=== PATIENT | male | born 1940 | race Caucasian/White ===

== ENCOUNTER 2016-05-01 11:22 | Inpatient (IN) | payer MEDICARE, OTHER ==
[~2016-05-01] VITALS: Ht 165.1 cm; Wt 61.3 kg
--- NOTE | ~2016-05-01 | CON ---
[place], [place] REPORT OF [facility]ATION [id number] UNIT #: [id number] ROOM: 502 DOCTOR: LEE ROGERSKIKE BIRTHDATE: [birth year] DOS: 05/02/2016 GASTROENDOSCOPIC REPORT HISTORY OF PRESENT ILLNESS: A 75-year-old patient who has presented with chief complaint of not feeling well, abdominal pain, undergoing investigation. The patient is known with prostate CA with bone metastasis. He also was found to have elevated amylase and lipase with 246 and 3818. CBC: White blood cell was 8, H and H of 11 and 34, differential within normal limit. Comprehensive metabolic panel, bilirubin was 0.6. ALT and AST normal, alkaline phosphatase 246. Lipase normalized to 577. CT scan of the abdomen and pelvis was done. Findings consistent with significant improvement in pancreatitis history when compared to prior exams, biliary stent with dilation of extrahepatic duct and , metastatic bone disease, fatty liver, cortical thickening of the kidney, left common iliac artery aneurysm all has been recognized. His amylase and lipase improved, lipase 400. PAST MEDICAL HISTORY: Abnormal LFTs, pancreatitis, pseudocyst, STEMI, prostate CA metastasis. PAST SURGICAL HISTORY: Right hand fingers amputations, renal lithiasis, angioplasty prostate, and cardiac catheterization. SOCIAL HISTORY: Smoker, nonalcohol consumer. FAMILY HISTORY: Coronary artery disease and diabetes. ALLERGIES: To no known medication. REVIEW OF SYSTEMS: In general, HEENT: Denies double vision, blurred vision. RESPIRATORY: Denies acute shortness of breath. CARDIOVASCULAR: Denies acute chest pain. DIGESTIVE SYSTEM: Cross abdominal pain, history of pancreatitis and gradual resolution of pancreatitis. PHYSICAL EXAMINATION: Reveals, VITAL SIGNS: Stable. HEENT: Head normocephalic, nontraumatic. Mouth and buccal mucosa benign. NECK: Supple, no thyromegaly. CHEST: Symmetric anatomy, equal expansion. No wheeze, no rhonchi. HEART: Normal sinus rhythm, no gallop, no murmur. ABDOMEN: Soft. No hepato-organomegaly. Bowel sounds within normal limits. EXTREMITIES: No cyanosis, no pedal edema. NEUROLOGIC: Alert, oriented to time, place and person. IMPRESSION: Pancreatitis with multi findings on CT scan as identified in detail with gradual resolution of pancreatitis with presence of biliary stent, cysts in the kidneys, abdominal aortic aneurysm, heterogeneous mass in the head of the pancreas measuring 3 cm and 17 mm cyst anterolateral location of this as [place], [place] REPORT OF CONSULTATION NAME: BRAXTON CHEN UNIT #: [id number] ROOM: [facility] DOCTOR: LEE ROGERS,KIKE BIRTHDATE: [birth year] explained, details are in the CT scan. PLAN AND DISCUSSION: In the presence of diffuse bony metastasis, conservative management would be recommended. Should the patient continue having difficulty swallowing or eating, I am going to organize an EGD. KIKE HOWARD MD CM:CONSTR:REPORT OF CONSULTATION 1649 05/03/16 0330 interface
--- NOTE | ~2016-05-01 | PR ---
[place], [place] PROGRESS NOTE NAME: BRAXTON CHEN UNIT #: [id number] ROOM: 502 DOCTOR: KAYLEIGH BAINS MD BIRTHDATE: [birth year] DOS: 05/03/2016 SUBJECTIVE: The patient is doing fine without any new complaints. He did have a fever during the night. Narayanan cultures were ordered and its pending. He was placed on Rocephin. OBJECTIVE: VITAL SIGNS: Graphic trend shows a pressure of 146/60, pulse of 69, respirations 18, temperature 97.2. LUNGS: Diminished breath sounds. No wheezes, rales or rhonchi heard. HEART: Regular. ABDOMEN: Obese, soft. EXTREMITIES: Without any edema. LABORATORY DATA: Tumor markers, CA 19-9 is actually normal at 47. ASSESSMENT AND PLAN: 1. Acute pancreatitis. The patient is on n.p.o. status, awaiting endoscopy tomorrow. Dr. Quinonez has already been seen. 2. Mass pancreas. CA 19-9 surprisingly normal and his recent biopsy is negative, so we still not sure about what the origin of this mass, whether this is an underlying malignancy, it might not be a bad idea to do a magnetic resonance cholangiopancreatography on this patient. We will discuss with Dr. Quinonez. KAYLEIGH BAINS MD CM:PNTRANS [id number] KAYLEIGH BAINS MD 05/31/16 1333 GAGAN ROCHA.PP
--- NOTE | ~2016-05-01 | WRIGHTHP ---
[place], [place] PATIENT HISTORY AND PHYSICAL EXAM NAME: BRAXTON CHEN [facility] #: [id number] UNIT #: [id number] ROOM: 502 DOCTOR: KAYLEIGH BAINS MD BIRTHDATE: [birth year] DOS: 05/01/2016 HISTORY OF PRESENT ILLNESS: The patient is 75-year-old. He had come to the office last week with complaints of abdominal pain. Amylase and lipase was ordered, which were elevated, so was advised admission. He continues to have abdominal pain. Denies having any fever, any chills, any chest pains or palpitations. PAST MEDICAL HISTORY: Significant for; 1. Recent diagnosis of pancreatic mass, status post biopsy by Dr. Quinonez which was unremarkable. 2. CA prostate with bony mets. 3. Benign hypertension. 4. Cardiac catheterization with recent stent placement. 5. Coronary artery disease. 6. Type 2 diabetes mellitus, diet controlled. 7. Tobacco dependence. 8. Chronic obstructive pulmonary disease, panacinar emphysema. MEDICATIONS: Symbicort 80 two puffs daily, aspirin 81 daily, calcium 500 daily, Coreg 12.5 b.i.d., vitamin D 5000 units daily, Plavix 75 daily, Xtandi 160 daily, Lasix 20 Saturday and Fridays only, Glucotrol 5 mg daily, lisinopril 5 mg daily, Protonix 40 b.i.d., sertraline 50 daily, nitroglycerin 0.6 daily. SOCIAL HISTORY: Smoker of about 1 pack of cigarettes a day. Denies using any alcohol. PHYSICAL EXAMINATION: GENERAL: The patient is awake and alert and oriented. VITAL SIGNS: Blood pressure is 132/74, pulse of 78, respirations 18, temperature 98.8. LUNGS: Diminished breath sounds. No wheezes, rales or rhonchi heard this morning. HEART: Regular. ABDOMEN: Soft but distended. Some diffuse tenderness. EXTREMITIES: Without any edema. LABORATORY DATA: CT of the abdomen shows a biliary stent, mass at the head of pancreas about 3 cm and 4.9 cm, infrarenal abdominal aortic aneurysm, osteoblastic lesion. ASSESSMENT AND PLAN: 1. Acute pancreatitis. The patient to be kept n.p.o., IV fluids have been ordered. Pain management to be given with fentanyl and Dr. Quinonez has been consulted. Discussed with Dr. Quinonez as well as the patient, and his in detail. 2. Mass pancreas. This is most likely from underlying malignancy, CA 19-[address] Quinonez will make a decision as regards to whether he wants to do another ERCP. 3. Carcinoma prostate, on chemotherapy with bony mets. Overall, prognosis [place], [place] PATIENT HISTORY AND PHYSICAL EXAM [facility]: [id number] UNIT #: [id number] ROOM: 502 DOCTOR: KAYLEIGH BAINS MD BIRTHDATE: [birth year] remains poor and guarded. If CA 19-9 comes back elevated, may need to consider hospice care for possibility of carcinoma pancreas. 4. Benign hypertension, controlled. 5. Type 2 diabetes mellitus, non-insulin dependent. Continue blood sugars twice a day with coverage. KAYLEIGH BAINS MD CM:HISPHYS:PATIENT HISTORY AND PHYSICAL EXAMINATION 1352 [id number] KAYLEIGH BAINS MD 05/02/16 175 interface
--- NOTE | ~2016-05-01 | DS ---
[place], [place] DISCHARGE SUMMARY NAME: BRAXTON CHEN [facility] #: [id number] UNIT #: [id number] ROOM: 502 DOCTOR: SANDY LEONARDO MD BIRTHDATE: [birth year] DOS: 05/05/2016 DISCHARGE DIAGNOSES: 1. The patient with acute pancreatitis. 2. Acute abdominal pains from acute pancreatitis. 3. History of pancreatic mass, status post biopsy. 4. History of CA of the prostate with bony mets. 5. Benign essential hypertension. 6. Coronary artery disease with heart catheterization and stent placement prior to this admission. 7. Type 2 diabetes mellitus, diet controlled. 8. Nicotine smoke dependence. 9. Chronic obstructive pulmonary disease. The patient was admitted when he presented to the Emergency Department and admitted to the hospital under care of Dr. Garcia for acute pancreatitis and acute abdominal pains. Initially Dr. Garcia kept him n.p.o. and the patient was hydrated with IV fluids. The patient's pain was managed with fentanyl patch. The patient was known to have pancreatic mass and suspected malignancy. Dr. Quinonez, the travel med surg rn followed the patient and was reconsulted. 10. Carcinoma of the prostate. The patient with bony metastasis on chemotherapy with a poor long-term prognosis. 11. Type 2 diabetes mellitus. The patient's blood sugars were monitored and treated. 12. Benign essential hypertension. Blood pressures were treated and monitored. 13. Coronary artery disease of the [place] vessels without chest pains. 14. Centrilobular emphysema and chronic obstructive pulmonary disease with chronic shortness of breath. The patient was feeling much better with abdominal pain, had improved with treatment and he was well hydrated and eating and tolerating diet, so he was discharged to home to follow up as an outpatient with his PCP, Dr. Leora Garcia. Prior to discharge, the patient's sugar was reasonably controlled. His hemoglobin was 11. He had slight elevation of lipase, which was improving and reduced to 463 prior to going home. Amylase levels were normal. No leukocytosis. Blood cultures were negative. Chest x-ray was without any acute abnormality. CAT scan of the abdomen and pelvis showed improvement of pancreatitis as compared to prior films. There was also biliary stent with dilatation of the extrahepatic ducts and pneumobilia and metastatic bone disease were also seen along with fatty liver. There was a 4.9 cm infrarenal abdominal aortic aneurysm without significant change. There was a pancreatic mass measuring 2.8 x 2.4 cm. The patient was discharged to home on his home medications which included Symbicort inhalation 80 mcg 2 inhalations daily, aspirin 81 mg a day, calcium with vitamin D, Coreg 12.5 mg b.i.d., vitamin D 5000 units daily, Plavix 75 mg a day, Lasix 20 mg Saturday to Saturday, Glucotrol 5 mg daily, lisinopril 5 mg daily, Protonix 40 mg b.i.d., sertraline 50 mg a day, nitropatch 0.6 mg daily. Follow up with PCP, Dr. Garcia in less than a week. [place], [place] DISCHARGE SUMMARY [facility]: [id number] UNIT #: [id number] ROOM: [facility] DOCTOR: SANDY LEONARDO MD BIRTHDATE: [birth year] SANDY LEONARDO MD CM:BAILEY 1643 [id number] SANDY LEONARDO MD 06/01/16 1750 interface
--- NOTE | ~2016-05-01 | PR ---
[place], [place] PROGRESS NOTE [facility] [id number] UNIT #: [id number] ROOM: 502 DOCTOR: KAYLEIGH BAINS MD BIRTHDATE: [birth year] DOS: SUBJECTIVE: The patient had some increased discomfort during the night, one dose of Dilaudid was given. I did speak to him about his pain and he told me that he would like his fentanyl dosage increased. OBJECTIVE: VITAL SIGNS: Graphic trend shows that he is afebrile, blood pressure 102/54, pulse of 55, respirations 16, temperature 98.4. LUNGS: Diminished breath sounds. No wheezes, rales or rhonchi heard. HEART: Regular. ABDOMEN: Obese. Severe tenderness in the epigastric region. EXTREMITIES: Without any edema. ASSESSMENT AND PLAN: 1. Mass pancreas with normal markers. The patient discussed with Dr. Quinonez. He is going for an endoscopy this morning. 2. Acute pancreatitis. Amylase and lipase levels are slowly coming down. The lipase level is still remaining about 463 possibly from the underlying malignancy. I will increase the dose of the fentanyl for better pain control. 3. Benign hypertension, controlled. KAYLEIGH BAINS MD CM:PNTRANS [id number] KAYLEIGH BAINS MD 05/31/16 1332 GAGAN ROCHA.PP
--- NOTE | ~2016-05-01 | O ---
[place], [place] OPERATIVE NOTE NAME: BRAXTON CHEN UNIT #: [id number] ROOM: 502 DOCTOR: LEE ROGERS,KIKE BIRTHDATE: [birth year] DOS: 05/04/2016 INDICATIONS: The patient has presented with suspected pancreatic carcinoma, pancreatic mass, abnormal LFTs, abdominal pain. PROCEDURE: Today's procedure part of investigation is ERCP plus obstructed stent from common duct removal and replacement with new common duct stent and balloon sweep of common duct. PREMEDICATION: Versed and Diprivan. SCOPE: Olympus side-viewing duodenoscope. REPORT: After putting the patient in the left lateral position and after application of lubricant to the scope, the scope was introduced. Thereafter, under direct visualization, advanced through the length of esophagus without difficulty. Duodenum was entered. Obstructed stent was photographed, snared, and orally extracted. At this stage, the patient was re-scoped. The ampulla of Vater was defined. Selective cannulation of common duct was undertaken. Guidewire advanced to the left hepatic radicle and a balloon, size 12, was negotiated over the wire. Common duct was swept. Lower segment of the common duct and nearly entire length of the common duct is obstructed because of the pancreatic encasement. At this stage, a stent, size 10 x 7, was deployed and successfully placed. Immediate drainage was noticed. The patient extubated after photographic series and radiologic documentation. IMPRESSION: Pancreatic carcinoma, common duct obstruction, status post obstructive stent removal, status post balloon sweep of common duct, status post common duct new stent placement. PLAN: Supportive therapy, pain management, diet, and followup thereafter. KIKE HOWARD MD CM:OPRECORD:OPERATIVE NOTE 1351 [id number] KIKE HOWARD MD 05/04/16 1546 interface
[~2016-05-01 11:22] MED LIST: ASPIR LOW81 MG PO; ASPIR-TRIN325 MG; ATORVASTATIN CA40 M1 PO; BICALUTAMIDE50 MG PO; CALCIUM500 M1 PO; CIPRO500 MG PO; CLOPIDOGREL75 MG PO; COREG12.5 M1 PO; DITROPAN5 MG PO; DULERA100; FUROSEMIDE20 M1 PO; HEPARIN IJ; LOPRESSOR50 MG; LOVASTATIN20 MG PO; OCUVITE1 TA1; OMEGA-3 FISH1200 MG; PERCOCET 325 MG1 TA2 PO; SYMBICORT1 AER INH; Transderm Nitr0.6 MG TD; VITAMIN D5000 I2; VITAMIN D5000 I3 PO; XGEVA120 MG/1.7 SC; XTANDI40 M1 PO; ZOLOFT100 MG PO; ZOLOFT50 MG PO; [UNRECOGNIZED DRUG - OTHER]; [UNRECOGNIZED DRUG - OTHER] IJ
[2016-05-01 11:39] VITALS: BP 82/60
[2016-05-01 12:28] LABS: BASO % 0.4 % (0.0-1.0); EOS # 0.1 10*3/uL (0.0-0.4); HEMATOCRIT 34.2 % (42.0-52.0); IG # 0.1 10*3/uL (0.0-0.1); MEAN CELL VOLUME 88.8 fl (80.0-94.0); MEAN CORPUSCULAR HGB 28.6 pg (27.0-31.0); MEAN CORPUSCULAR HGB CONC 32.2 g/dl (33.0-37.0); MEAN PLATELET VOLUME 9.8 fl (9.6-12.3); MONO # 0.6 10*3/uL (0.1-1.0); MONO % 7.6 % (3.0-9.0); NEUT # 6.5 10*3/uL (2.3-7.9); NEUT % 78.4 % (47.0-73.0); PLATELET COUNT AUTOMATED 197 10*3/uL (130-400); RED BLOOD COUNT 3.85 10*6/uL (4.50-5.90); RED CELL DISTRI WIDTH 16.9 % (0-14.5); WHITE BLOOD COUNT 8.3 10*3/uL (4.8-10.8)
[2016-05-01 12:42] LABS: ALBUMIN 2.7 gm/dl (3.1-4.5); ALKALINE PHOSPHATASE 246 U/L (45-117); BILIRUBIN, TOTAL 0.6 mg/dl (0.2-1.0); BUN 17 mg/dl (7-24); CARBON DIOXIDE 24 mmol/L (21-32); CHLORIDE 104 mmol/L (98-107); EST GLOM FILT AFRICAN AMERICAN > 60 ml/min; GLUCOSE 131 mg/dL (65-99); POTASSIUM 3.6 mmol/L (3.5-5.1); SGOT/AST 12 IU/L (3-35); SGPT/ALT 16 U/L (12-78); SODIUM 139 mmol/L (136-145); TOTAL PROTEIN 6.3 gm/dL (6.4-8.2)
[2016-05-01 16:00] VITALS: BP 130/60
[2016-05-01] MEDS ORDERED: GLUCOTROL5 MG PO (16:24)
[2016-05-01] MEDS ORDERED: PANTOPRAZOLE SO40 MG PO (16:27)
[2016-05-01] MEDS ORDERED: PRINIVIL5 M1 PO (16:34)
[2016-05-01 20:00] VITALS: BP 114/58; BP 129/85
[2016-05-02] VITALS: BP 134/77
[2016-05-02 08:00] VITALS: BP 136/71
[2016-05-02 12:00] VITALS: BP 132/74
[2016-05-02 16:00] VITALS: BP 135/77; BP 97/53
[2016-05-02 20:00] VITALS: BP 139/81
[2016-05-03] VITALS: BP 110/54
[2016-05-03 08:00] VITALS: BP 146/60
[2016-05-03 12:00] VITALS: BP 124/80
[2016-05-03 16:00] VITALS: BP 133/75
[2016-05-03 20:00] VITALS: BP 121/69
[2016-05-04] VITALS (10 sets, daily range): BP systolic 93–134; BP diastolic 50–67
[2016-05-05] VITALS: BP 90/52
[2016-05-05 08:00] VITALS: BP 102/60; BP 104/60; BP 132/92
[2016-05-05 12:00] VITALS: BP 109/56
[2016-05-05 16:00] VITALS: BP 101/57
[2016-05-12] MEDS ORDERED: MIRALAX POWDER17 G1 PO (18:52)
[2016-05-12] MEDS ORDERED: OCUVITE1 TA1 PO (19:03)
[2016-05-12] MEDS ORDERED: DURAGESIC 25 M25 MCG TD (19:03)
[2016-05-24] MEDS ORDERED: PERCOCET 325 MG1 TA2 PO (17:09)
== END 2016-05-05 17:22 | disposition home or self-care (01) | DRG 438 ==
LOC: ED 11:22 → EDHOLD 15:22 → ED 15:22 → EDHOLD 15:25 → 5E 15:25
PROVIDERS: Nurse Practitioner Family
PROC: 0FPB8DZ Removal of Intraluminal Device from Hepatobiliary Duct, Via Natural or Artificial Opening Endoscopic (ICD-10-PCS; principal; 2016-05-04)
PROC: 0F798DZ Dilation of Common Bile Duct with Intraluminal Device, Via Natural or Artificial Opening Endoscopic (ICD-10-PCS; principal; 2016-05-04)
DX: K85.90 Acute pancreatitis without necrosis or infection, unspecified (principal); K83.1 Obstruction of bile duct; I95.9 Hypotension, unspecified; C79.51 Secondary malignant neoplasm of bone; C25.9 Malignant neoplasm of pancreas, unspecified; E44.1 Mild protein-calorie malnutrition; E11.9 Type 2 diabetes mellitus without complications; I10 Essential (primary) hypertension; I25.10 Atherosclerotic heart disease of native coronary artery without angina pectoris; F17.200 Nicotine dependence, unspecified, uncomplicated; I71.4 Abdominal aortic aneurysm, without rupture; J43.1 Panlobular emphysema; Z87.442 Personal history of urinary calculi; I25.2 Old myocardial infarction; Z98.61 Coronary angioplasty status; Z92.21 Personal history of antineoplastic chemotherapy